=== PATIENT | male | born 1960 | race Caucasian/White ===

== ENCOUNTER → 2016-11-23 | Outpatient (CLI) | payer MEDICARE, MEDICAID ==
[~2016-11-23] MED LIST: ATOR20TA9 PO; BENZ0.5T PO; LEVO25TA4 PO; PRIM50TA PO; QUET100T PO; QUET400T PO; SERT100T5 PO
[2016-11-23 15:23] LABS: HEMATOCRIT 45.2 % (39.2-51.8); HEMOGLOBIN 15.3 g/dL (13.7-18.0); WHITE BLOOD COUNT 10.6 x10^3/uL (3.4-10)
[2016-11-23 15:35] LABS: ASPARTATE AMINO TRANSFERASE 13 U/L (15-37); BLOOD UREA NITROGEN 14 mg/dL (7-18)
== END | disposition home or self-care (01) ==
LOC: STAR 14:22
PROVIDERS: ATTEND Neurological Surgery
DX: Z01.818 Encounter for other preprocedural examination (principal); R94.31 Abnormal electrocardiogram [ECG] [EKG]; M50.00 Cervical disc disorder with myelopathy, unspecified cervical region; R79.1 Abnormal coagulation profile
CPT/HCPCS: 36415; 71020; 80053; 85025; 85610; 85730; 93005

== ENCOUNTER 2016-12-07 05:52 | Inpatient (IN) | payer MEDICARE, MEDICAID ==
[~2016-12-07] VITALS: Ht 182.9 cm; Wt 96.0 kg
[2016-12-07] MEDS ORDERED: THROMBIN 5,000 UNIT VIAL TP ONE (06:14)
[2016-12-07] MEDS ORDERED: BUPIVACAINE/PF 0.5% ONE (06:14)
[2016-12-07] MEDS ORDERED: BACITRACIN 50,000 UNIT ONE (06:14)
[2016-12-07] MEDS ORDERED: LACTATED RINGERS 1,000 ML IV SCH (06:47)
[2016-12-07 06:49] VITALS: BP 127/81
[2016-12-07] MEDS ORDERED: FENTANYL PF 100 MCG/2ML ONE (07:29)
[2016-12-07] MEDS ORDERED: MIDAZOLAM 1 MG/ML, 2ML ONE (07:29)
[2016-12-07] MEDS ORDERED: PROPOFOL 50 ML ONE ×5 (07:33→12:14)
[2016-12-07] MEDS ORDERED: REMIFENTANIL 2 MG ONE (07:38)
[2016-12-07] MEDS ORDERED: LEVETIRACETAM 1,000 MG in SODIUM CHLORIDE 0.9% 100 ML IV ONE (09:00)
[2016-12-07] MEDS ORDERED: VANCOMYCIN 1,000 MG ONE (11:16)
[2016-12-07] MEDS ORDERED: HYDROmorphone 2 MG/ML, 1ML ONE (12:11)
[2016-12-07] MEDS ORDERED: DEXAMETHASONE 4 MG/ML, 1ML ONE (12:50)
[2016-12-07] MEDS ORDERED: ONDANSETRON 2MG/ML, 2ML ONE (12:50)
[2016-12-07] MEDS ORDERED: CEFAZOLIN 1,000 MG ONE (12:50)
[2016-12-07] MEDS ORDERED: ROCURONIUM 10 MG/ML ONE (12:50)
[2016-12-07] MEDS ORDERED: PROPOFOL 10 MG/ML, 20ML ONE (12:50)
[2016-12-07] MEDS ORDERED: SUCCINYLCHOLINE 20 MG/ML, 10ML ONE (12:50)
[2016-12-07] MEDS ORDERED: hydrALAzine 20 MG/ML, 1ML IV PRN (13:30)
[2016-12-07] MEDS ORDERED: ONDANSETRON 2MG/ML, 2ML IVPush PRN (13:30)
[2016-12-07] MEDS ORDERED: DIAZEPAM 5 MG/ML, 2ML IVPush PRN (13:30)
[2016-12-07] MEDS ORDERED: OXYcodone 5 MG/5 ML ORAL.SOL UDC PO PRN (13:30)
[2016-12-07] MEDS ORDERED: LABETALOL 5MG/ML, 20ML IV PRN (13:30)
[2016-12-07] MEDS ORDERED: ALBUTEROL SULFATE 2.5 MG/3 ML NPPB PRN (13:30)
[2016-12-07] MEDS ORDERED: ACETAMINOPHEN 325 MG TABLET PO PRN (13:30)
[2016-12-07] MEDS ORDERED: METOPROLOL 1 MG/ML, 5ML IV PRN (13:30)
[2016-12-07] MEDS ORDERED: MIDAZOLAM 1 MG/ML, 2ML IV PRN (13:30)
[2016-12-07] MEDS ORDERED: HYDROcodone/APAP 7.5-325MG/15ML UDC PO PRN (13:30)
[2016-12-07] MEDS ORDERED: PROMETHAZINE 25 MG/ML, 1ML IV PRN (13:30)
[2016-12-07] MEDS ORDERED: MEPERIDINE/PF 25MG/0.5ML IVPush PRN (13:30)
[2016-12-07] MEDS ORDERED: FENTANYL PF 100 MCG/2ML IV PRN (13:30)
[2016-12-07] MEDS ORDERED: EPHEDRINE 50 MG/ML, 1ML IVPush PRN (13:30)
[2016-12-07] MEDS ORDERED: HYDROmorphone 1 MG/ML, 1ML ONE (13:32)
[2016-12-07] MEDS: HYDROmorphone 1 MG/ML, 1ML IV PRN ×3 (13:35→13:50)
[2016-12-07] MEDS ORDERED: HYDROmorphone PCA 30 MG/30 ML ONE (13:38)
[2016-12-07] MEDS ORDERED: ACETAMINOPHEN 650 MG/20.3 ML UDC ONE (13:39)
[2016-12-07] MEDS ORDERED: OXYcodone 5 MG/5 ML ORAL.SOL UDC ONE (13:39)
[2016-12-07] MEDS: ALBUTEROL/IPRATROPIUM 2.5MG/0.5MG, 3 ML NPPB PRN ×2 (13:40→13:45)
[2016-12-07] MEDS ORDERED: ALBUTEROL/IPRATROPIUM 2.5MG/0.5MG, 3 ML ONE (13:42)
[2016-12-07] MEDS ORDERED: METHOCARBAMOL 1,000 MG in DEXTROSE 5% 100 ML IV ONE (13:51)
[2016-12-07] MEDS ORDERED: HYDROmorphone PCA 30 MG/30 ML IV PRN (14:00)
[2016-12-07] MEDS ORDERED: ALBUTEROL/IPRATROPIUM 2.5MG/0.5MG, 3 ML NPPB SCH (16:00)
[2016-12-07] MEDS ORDERED: BISACODYL 10 MG SUPP PR PRN (16:30)
[2016-12-07] MEDS ORDERED: DIPHENHYDRAMINE 50 MG CAPSULE PO PRN (16:30)
[2016-12-07] MEDS ORDERED: CYCLOBENZAPRINE 10 MG TABLET PO PRN (16:30)
[2016-12-07] MEDS ORDERED: HYDROmorphone 2MG TABLET PO PRN (16:30)
[2016-12-07] MEDS ORDERED: MAGNESIUM HYDROXIDE 8%, 30ML UDC PO PRN (16:30)
[2016-12-07] MEDS ORDERED: DIPHENHYDRAMINE 50 MG/ML, 1ML IM PRN (16:30)
[2016-12-07] MEDS ORDERED: PROMETHAZINE 25 MG/ML, 1ML IM PRN (16:30)
[2016-12-07] MEDS ORDERED: DIPHENHYDRAMINE 50 MG/ML, 1ML IVPush PRN (16:30)
[2016-12-07] MEDS ORDERED: ONDANSETRON 2MG/ML, 2ML IV PRN (16:30)
[2016-12-07] MEDS: NS + 20MEQ KCL 1,000 ML IV SCH (17:15)
[2016-12-07] MEDS: ALBUTEROL/IPRATROPIUM 2.5MG/0.5MG, 3 ML NPPB SCH ×2 (19:40→20:00)
[2016-12-07 19:52] VITALS: BP 146/85
[2016-12-07] MEDS ORDERED: ZOLPIDEM 5MG TABLET PO PRN (21:00)
[2016-12-07] MEDS: QUETIAPINE 100MG TABLET PO SCH (21:21)
[2016-12-07] MEDS: ATORVASTATIN 20 MG TABLET PO SCH (21:21)
[2016-12-07] MEDS: SERTRALINE 100MG TABLET PO SCH (21:21)
[2016-12-07] MEDS: BENZTROPINE 1 MG TABLET PO SCH (21:22)
[2016-12-07] MEDS: PRIMIDONE 50 MG TABLET PO SCH (22:03)
[2016-12-07] MEDS: METHOCARBAMOL 750 MG in DEXTROSE 5% 100 ML IV SCH (22:04)
[2016-12-08 00:05] VITALS: BP 110/67
[2016-12-08] MEDS: HYDROmorphone 2 MG/ML, 1ML IM PRN ×3 (00:25→03:25)
[2016-12-08 03:38] VITALS: BP 124/54
[2016-12-08 05:14] LABS: HEMATOCRIT 38.8 % (39.2-51.8); HEMOGLOBIN 13.1 g/dL (13.7-18.0); WHITE BLOOD COUNT 11.7 x10^3/uL (3.4-10)
[2016-12-08 05:26] LABS: BLOOD UREA NITROGEN 6 mg/dL (7-18)
[2016-12-08] MEDS: METHOCARBAMOL 750 MG in DEXTROSE 5% 100 ML IV SCH ×3 (05:52→22:12)
[2016-12-08] MEDS: LEVOTHYROXINE 25 MCG TABLET PO SCH (05:52)
[2016-12-08] MEDS: PRIMIDONE 50 MG TABLET PO SCH ×4 (05:52→22:13)
[2016-12-08] MEDS: NS + 20MEQ KCL 1,000 ML IV SCH ×2 (05:52→16:00)
[2016-12-08] MEDS: ALBUTEROL/IPRATROPIUM 2.5MG/0.5MG, 3 ML NPPB SCH (07:00)
[2016-12-08 07:18] VITALS: BP 117/77
[2016-12-08] MEDS: SERTRALINE 100MG TABLET PO SCH ×2 (08:10→22:13)
[2016-12-08] MEDS: SENNA/DOCUSATE TABLET PO SCH (08:10)
[2016-12-08] MEDS: BENZTROPINE 1 MG TABLET PO SCH ×2 (08:11→22:14)
[2016-12-08] MEDS: QUETIAPINE 100MG TABLET PO SCH ×2 (08:11→22:13)
[2016-12-08] MEDS: IPRATROPIUM 0.5 MG/2.5 ML INHA NPPB SCH ×3 (09:00→21:00)
[2016-12-08] MEDS: HEPARIN 5,000 UNITS/ML, 1ML SQ SCH ×2 (13:40→22:12)
[2016-12-08] MEDS ORDERED: HEPARIN 5,000 UNITS/ML, 1ML SQ SCH (14:00)
[2016-12-08 14:50] VITALS: BP 120/67
[2016-12-08 18:53] VITALS: BP 133/83
[2016-12-08] MEDS: ATORVASTATIN 20 MG TABLET PO SCH (22:13)
[2016-12-09 01:07] VITALS: BP 118/66
[2016-12-09] MEDS: NS + 20MEQ KCL 1,000 ML IV SCH ×2 (04:43→19:00)
[2016-12-09] MEDS: LEVOTHYROXINE 25 MCG TABLET PO SCH (06:24)
[2016-12-09] MEDS: PRIMIDONE 50 MG TABLET PO SCH ×4 (06:24→20:59)
[2016-12-09] MEDS: METHOCARBAMOL 750 MG in DEXTROSE 5% 100 ML IV SCH ×2 (06:24→14:19)
[2016-12-09] MEDS: HEPARIN 5,000 UNITS/ML, 1ML SQ SCH ×3 (06:24→21:52)
[2016-12-09 06:49] VITALS: BP 111/69
[2016-12-09] MEDS: QUETIAPINE 100MG TABLET PO SCH ×2 (09:00→20:58)
[2016-12-09] MEDS: BENZTROPINE 1 MG TABLET PO SCH ×2 (09:00→20:58)
[2016-12-09] MEDS: IPRATROPIUM 0.5 MG/2.5 ML INHA NPPB SCH ×3 (09:10→20:37)
[2016-12-09] MEDS ORDERED: OXYcodone IR 5MG TABLET PO PRN (09:30)
[2016-12-09 09:40] LABS: HEMATOCRIT 41.2 % (39.2-51.8); WHITE BLOOD COUNT 11.4 x10^3/uL (3.4-10)
[2016-12-09 09:46] LABS: BLOOD UREA NITROGEN 5 mg/dL (7-18)
[2016-12-09] MEDS: HYDROcodone/APAP 10/325 MG TABLET PO PRN ×2 (09:51→18:44)
[2016-12-09] MEDS: SERTRALINE 100MG TABLET PO SCH ×2 (09:52→20:58)
[2016-12-09] MEDS: SENNA/DOCUSATE TABLET PO SCH (09:53)
[2016-12-09 14:35] VITALS: BP 107/72
[2016-12-09 19:14] VITALS: BP 127/79
[2016-12-09] MEDS: ATORVASTATIN 20 MG TABLET PO SCH (20:59)
[2016-12-09] MEDS: METHOCARBAMOL 750 MG TABLET PO SCH (21:51)
[2016-12-10 01:58] VITALS: BP 130/80
[2016-12-10] MEDS: HEPARIN 5,000 UNITS/ML, 1ML SQ SCH ×3 (06:06→21:37)
[2016-12-10] MEDS: LEVOTHYROXINE 25 MCG TABLET PO SCH (06:06)
[2016-12-10] MEDS: METHOCARBAMOL 750 MG TABLET PO SCH ×3 (06:06→21:37)
[2016-12-10] MEDS: PRIMIDONE 50 MG TABLET PO SCH ×4 (06:06→21:38)
[2016-12-10 06:30] VITALS: BP 120/83
[2016-12-10] MEDS: NS + 20MEQ KCL 1,000 ML IV SCH ×2 (07:03→19:06)
[2016-12-10] MEDS: BENZTROPINE 1 MG TABLET PO SCH ×2 (08:59→21:00)
[2016-12-10] MEDS: SENNA/DOCUSATE TABLET PO SCH (08:59)
[2016-12-10] MEDS: QUETIAPINE 100MG TABLET PO SCH ×2 (09:00→21:37)
[2016-12-10] MEDS: IPRATROPIUM 0.5 MG/2.5 ML INHA NPPB SCH (09:00)
[2016-12-10] MEDS: SERTRALINE 100MG TABLET PO SCH ×2 (09:00→21:37)
[2016-12-10] MEDS: HYDROcodone/APAP 10/325 MG TABLET PO PRN (12:01)
[2016-12-10 14:33] VITALS: BP 119/67
[2016-12-10] MEDS ORDERED: IPRATROPIUM 0.5 MG/2.5 ML INHA NPPB PRN (21:00)
[2016-12-10 21:04] VITALS: BP 131/77
[2016-12-10] MEDS: ATORVASTATIN 20 MG TABLET PO SCH (21:38)
[2016-12-11 03:37] VITALS: BP 115/75
[2016-12-11] MEDS: HYDROcodone/APAP 10/325 MG TABLET PO PRN ×3 (03:44→22:26)
[2016-12-11] MEDS: LEVOTHYROXINE 25 MCG TABLET PO SCH (05:33)
[2016-12-11] MEDS: PRIMIDONE 50 MG TABLET PO SCH ×4 (05:33→20:56)
[2016-12-11] MEDS: HEPARIN 5,000 UNITS/ML, 1ML SQ SCH ×3 (05:33→22:26)
[2016-12-11] MEDS: METHOCARBAMOL 750 MG TABLET PO SCH ×3 (05:33→22:26)
[2016-12-11] MEDS: NS + 20MEQ KCL 1,000 ML IV SCH ×2 (06:41→19:12)
[2016-12-11 06:45] VITALS: BP 117/74
[2016-12-11] MEDS: MAGNESIUM CITRATE 300ML ORAL SOL PO SCH ×4 (08:39→20:55)
[2016-12-11] MEDS: SERTRALINE 100MG TABLET PO SCH ×2 (08:39→20:57)
[2016-12-11] MEDS: QUETIAPINE 100MG TABLET PO SCH ×2 (08:40→20:57)
[2016-12-11] MEDS: BENZTROPINE 1 MG TABLET PO SCH ×2 (08:41→20:57)
[2016-12-11] MEDS: SENNA/DOCUSATE TABLET PO SCH (08:47)
[2016-12-11] MEDS: AMPICILLIN/SULBACTAM 3 GM in SODIUM CHLORIDE 0.9% 100 ML IV SCH ×2 (15:01→20:01)
[2016-12-11 15:11] VITALS: BP 107/62
[2016-12-11 18:56] VITALS: BP 125/79
[2016-12-11] MEDS: ATORVASTATIN 20 MG TABLET PO SCH (20:56)
[2016-12-12] MEDS: AMPICILLIN/SULBACTAM 3 GM in SODIUM CHLORIDE 0.9% 100 ML IV SCH ×2 (01:55→08:38)
[2016-12-12 02:55] VITALS: BP 123/81
[2016-12-12] MEDS: METHOCARBAMOL 750 MG TABLET PO SCH ×2 (05:24→14:33)
[2016-12-12] MEDS: HYDROcodone/APAP 10/325 MG TABLET PO PRN ×2 (05:24→14:34)
[2016-12-12] MEDS: LEVOTHYROXINE 25 MCG TABLET PO SCH (05:24)
[2016-12-12] MEDS: PRIMIDONE 50 MG TABLET PO SCH ×2 (05:24→11:20)
[2016-12-12] MEDS: HEPARIN 5,000 UNITS/ML, 1ML SQ SCH ×2 (05:24→14:33)
[2016-12-12 07:23] VITALS: BP 123/68
[2016-12-12] MEDS: SERTRALINE 100MG TABLET PO SCH (08:38)
[2016-12-12] MEDS: BENZTROPINE 1 MG TABLET PO SCH (08:39)
[2016-12-12] MEDS: QUETIAPINE 100MG TABLET PO SCH (08:39)
[2016-12-12] MEDS: NS + 20MEQ KCL 1,000 ML IV SCH (08:41)
[2016-12-12] MEDS: AMPICILLIN 500MG CAPSULE PO SCH ×2 (09:00→14:33)
[2016-12-12] MEDS ORDERED: SENNA/DOCUSATE TABLET PO SCH (09:00)
[2016-12-12] MEDS ORDERED: MORP-52 PO (09:54)
[2016-12-12] MEDS ORDERED: METH750T87 PO (09:56)
[2016-12-12] MEDS ORDERED: SENN1TAB7 PO (09:58)
[2016-12-12] MEDS ORDERED: CHOL10003 PO (10:03)
[2016-12-12] MEDS ORDERED: HYDR-3307 PO (10:05)
[2016-12-12] MEDS ORDERED: CALC300T5 PO (10:10)
[2016-12-12] MEDS ORDERED: AMPI500C2 PO (10:28)
[2016-12-12 13:00] VITALS: BP 133/78
[2016-12-12] MEDS ORDERED: FLU VACC QS2017-18 (36MOS+) UP/PF 0.5 ML IM-VACC ONE (14:00)
[2016-12-12] MEDS ORDERED: BISA10SU2 PR (14:05)
[2016-12-12] MEDS ORDERED: [UNRECOGNIZED DRUG - CODE] PO (14:07)
[2016-12-12] MEDS ORDERED: [UNRECOGNIZED DRUG - CODE] SC (14:09)
[2016-12-12 15:05] VITALS: BP 132/82
== END 2016-12-12 15:32 | DRG 453 ==
LOC: ORIP 05:52 → 4NOR 15:26
PROVIDERS: ADMIT Neurological Surgery; ATTEND Neurological Surgery
PROC: 01N10ZZ Release Cervical Nerve, Open Approach (ICD-10-PCS; 2016-12-07)
PROC: 00NW0ZZ Release Cervical Spinal Cord, Open Approach (ICD-10-PCS; 2016-12-07)
PROC: 0RB30ZZ Excision of Cervical Vertebral Disc, Open Approach (ICD-10-PCS; 2016-12-07)
PROC: 0RG2071 Fusion of 2 or more Cervical Vertebral Joints with Autologous Tissue Substitute, Posterior Approach, Posterior Column, Open Approach (ICD-10-PCS; 2016-12-07)
PROC: BR111ZZ Fluoroscopy of Cervical Disc(s) using Low Osmolar Contrast (ICD-10-PCS; 2016-12-07)
PROC: 4A10X4G Monitoring of Central Nervous Electrical Activity, Intraoperative, External Approach (ICD-10-PCS; 2016-12-07)
PROC: 0RG20A0 Fusion of 2 or more Cervical Vertebral Joints with Interbody Fusion Device, Anterior Approach, Anterior Column, Open Approach (ICD-10-PCS; principal; 2016-12-07 08:00)
PROC: 3E0234Z Introduction of Serum, Toxoid and Vaccine into Muscle, Percutaneous Approach (ICD-10-PCS; 2016-12-12)
DX: M48.02 Spinal stenosis, cervical region (principal); J18.9 Pneumonia, unspecified organism; G95.89 Other specified diseases of spinal cord; J44.0 Chronic obstructive pulmonary disease with (acute) lower respiratory infection; M54.12 Radiculopathy, cervical region; K59.00 Constipation, unspecified; R26.81 Unsteadiness on feet; F32.9 Major depressive disorder, single episode, unspecified; E03.9 Hypothyroidism, unspecified; Z23 Encounter for immunization; F17.210 Nicotine dependence, cigarettes, uncomplicated
CPT/HCPCS: 36415; 71010; 72040; 80048; 85025; 86850; 86900; 90686; 94640; C1713; C1729; J0295; J0690; J1100; J1170; J1644; J2250; J2405; J2704; J3010; J3370; J3480; J3490; J7620; J7644; C1762; J0330; J2800; J7120